=== PATIENT | female | born 1990 | race Caucasian/White ===

== ENCOUNTER 2023-06-12 10:41 | Inpatient (IN) | payer OTHER ==
[~2023-06-12] VITALS: Ht 160 cm; Wt 2.3 kg
[~2023-06-12 10:41] MED LIST: PRENATAL CAPLE1 EAC1 PO
[2023-06-12] MEDS ORDERED: PROTONIX40 MG PO (11:21)
[2023-06-18] MEDS ORDERED: LANSOPRAZOLE30 MG (13:32)
[2023-06-18] MEDS ORDERED: DOCUSATE CALCI240 MG (13:33)
[2023-06-18] MEDS ORDERED: FAMOTIDINE40 MG (13:33)
== END 2023-06-20 16:35 | disposition home or self-care (01) | DRG 788 ==
LOC: SURG 06-17 07:00 → O/R 06-17 09:12 → SURG 06-17 10:45 → OB/GYN 06-17 15:55
PROVIDERS: ADMIT Obstetrics & Gynecology; ATTEND Obstetrics & Gynecology
PROC: 4A1HXCZ Monitoring of Products of Conception, Cardiac Rate, External Approach (ICD-10-PCS; 2023-06-17)
PROC: 10D00Z1 Extraction of Products of Conception, Low, Open Approach (ICD-10-PCS; principal; 2023-06-17 07:00)
DX: O34.211 Maternal care for low transverse scar from previous cesarean delivery (principal); Z3A.38 38 weeks gestation of pregnancy; Z37.0 Single live birth; Z20.822 Contact with and (suspected) exposure to COVID-19